=== PATIENT | male | born 1975 | race African-American/Black ===

== ENCOUNTER 2020-08-13 19:28 | Emergency (ER) | payer MEDICAID ==
[~2020-08-13] VITALS: Ht 188 cm; Wt 100.0 kg
[2020-08-13] MEDS ORDERED: DIPHENHYDRAMINE 50MG/ML VIAL IM STA (19:59)
[2020-08-13] MEDS ORDERED: LORAZEPAM 2MG/ML CPJ IM STA (19:59)
[2020-08-13] MEDS ORDERED: HALOPERIDOL LACTATE 5MG/ML VIAL IM STA (19:59)
[2020-08-13] MEDS ORDERED: SODIUM CHLORIDE 0.9% 1,000 ML IV ONE (20:00)
[2020-08-13] MEDS ORDERED: LORAZEPAM 2MG/ML CPJ IV ONE ×2 (20:00→22:15)
[2020-08-13 21:22] LABS: BASOPHILS % 0.7 % (0.0-2.0); EOSINOPHILS % 1.7 % (0.0-5.0); HEMATOCRIT. 39.8 % (42.0-52.0); HEMOGLOBIN. 13.4 g/dL (14.0-18.0); MEAN CORPUSCULAR HEMOGLOBIN 27.7 pg (28.0-32.0); MEAN CORPUSCULAR VOLUME 82.4 fL (80.0-94.0); MEAN PLATELET VOLUME 8.7 fl (7.4-10.4); MONOCYTES % 6.5 % (2.0-8.0); NEUTROPHILS % 70.1 % (40.0-76.0); PLATELET 201 x1000/uL (130-400); RED BLOOD CELL COUNT 4.83 mill/uL (4.7-6.1)
[2020-08-13 21:29] LABS: CHLORIDE 108 mEq/L (98-107)
[2020-08-13 21:33] LABS: ETHANOL BLOOD < 10 mg/dL
[2020-08-13 21:57] LABS: CLARITY URINE CLEAR (CLEAR); COLOR URINE YELLOW (YELLOW); KETONES URINE NEGATIVE (NEGATIVE); LEUKOCYTE ESTERASE URINE TRACE (NEGATIVE); NITRITE URINE NEGATIVE (NEGATIVE); OCCULT BLOOD URINE NEGATIVE (NEGATIVE); PH URINE 6.5 (4.5-8.0); PROTEIN URINE NEGATIVE (NEGATIVE); SPECIFIC GRAVITY URINE 1.016 (1.005-1.030); UROBILINOGEN URINE 0.2 E.U./dL (0.2-1.0)
[2020-08-13 22:07] LABS: *AMPHETAMINES SCREEN URINE NEGATIVE (NEGATIVE); *BARBITURATES SCREEN URINE NEGATIVE (NEGATIVE)
[2020-08-13 22:08] LABS: *BENZODIAZEPINES SCREEN URINE NEGATIVE (NEGATIVE); *COCAINE SCREEN URINE NEGATIVE (NEGATIVE); CANNABINOID URINE SCREEN NEGATIVE (NEGATIVE); METHADONE URINE SCREEN NEGATIVE (NEGATIVE); OPIATES URINE SCREEN NEGATIVE (NEGATIVE); PHENCYCLIDINE URINE SCREEN PRESUMTIVE POSITIVE (NEGATIVE)
[2020-08-14 05:00] VITALS: BP 123/73
== END 2020-08-14 05:53 | disposition home or self-care (01) ==
LOC: ER 19:28
DX: R45.1 Restlessness and agitation (principal); R41.82 Altered mental status, unspecified
CPT/HCPCS: 36415; 70450; 71045; 80053; 80305; 80307; 80320; 80329; 81003; 84484; 85025; 93005; 96361; 96372; 96374; 99285; J1200; J1630; J2060; J7030; G0480